=== PATIENT | female | born 1970 | race Caucasian/White ===

== ENCOUNTER 2016-08-23 12:26 | Emergency (ER) | payer OTHER, SELFPAY ==
[~2016-08-23] VITALS: Ht 170.2 cm; Wt 65.8 kg
[~2016-08-23 12:26] MED LIST: ABIL10TA; ALBUTEROL INHALATION; AMBI10TA; BACTRIMDS PO; BUSP15TA; CHLO200T; EFFE37.527; KLON2TAB; Lortab; PROZ40CA; RANI150C; RISP2TAB12; SOMA350 PO; TESSALO100 PO; TOPI100T; TOPI200T; TRAZ100T; ZYBAN150 PO
[2016-08-23 12:43] VITALS: BP 135/75
[2016-08-23] MEDS ORDERED: CLINDAMYCIN 600 MG/50 ML PREMIX BAG XX ONE (13:45)
[2016-08-23] MEDS ORDERED: BACTRIM 160MG/800MG DS TAB PO ONE (13:45)
[2016-08-23] MEDS ORDERED: ADACEL/BOOSTRIX VACCINE (DIPHTH/PERTUSS/ACELL/TETANUS)0.5ML SYR (90715) IM ONE (13:45)
[2016-08-23] MEDS ORDERED: CLIN1CAP5 PO (13:57)
[2016-08-23] MEDS ORDERED: BACT800T5 PO (13:58)
[2016-08-23] MEDS ORDERED: CLINDAMYCIN INJ 900MG/6ML VIAL IM ONE (14:00)
== END 2016-08-23 14:21 | disposition home or self-care (01) ==
LOC: EDBD 12:26 → M ED 13:56
DX: S61.259A Open bite of unspecified finger without damage to nail, initial encounter (principal); L03.011 Cellulitis of right finger; W54.0XXA Bitten by dog, initial encounter; Y92.099 Unspecified place in other non-institutional residence as the place of occurrence of the external cause; Y93.9 Activity, unspecified; Y99.9 Unspecified external cause status; F17.200 Nicotine dependence, unspecified, uncomplicated; Z79.899 Other long term (current) drug therapy; Z88.0 Allergy status to penicillin

== ENCOUNTER → 2016-09-03 | Outpatient (CLI) | payer OTHER ==
[~2016-09-03] MED LIST changes: +BACT800T5 PO; +CLIN1CAP5 PO
== END ==
LOC: M OUTALCOH 09:05
PROVIDERS: ATTEND Psychiatry & Neurology Psychiatry
DX: Z13.9 Encounter for screening, unspecified (principal); F10.20 Alcohol dependence, uncomplicated

== ENCOUNTER 2016-11-08 20:58 | Emergency (ER) | payer OTHER ==
[~2016-11-08] VITALS: Ht 170.2 cm; Wt 66.0 kg
[2016-11-08 21:05] VITALS: BP 134/70
[2016-11-09] MEDS ORDERED: CLEO300C2 PO (11:46)
== END 2016-11-08 21:43 | disposition left against medical advice (07) ==
LOC: EDBD 20:58 → M ED 21:23
DX: F10.10 Alcohol abuse, uncomplicated (principal); Z53.29 Procedure and treatment not carried out because of patient's decision for other reasons

== ENCOUNTER 2016-11-09 10:26 | Emergency (ER) | payer OTHER ==
[~2016-11-09] VITALS: Ht 170.2 cm; Wt 65.5 kg
[~2016-11-09 10:26] MED LIST changes: +CLIN150C14 PO; -CLIN1CAP5 PO
[2016-11-09] MEDS ORDERED: LIDOCAINE 1% MDV 20ML VIAL As Ordered ONE (11:14)
[2016-11-09] MEDS ORDERED: cefTRIAXone SOD 1 GM VIAL (J0696) IM ONE (11:15)
[2016-11-09] MEDS ORDERED: CLINDAMYCIN 150 MG CAP PO ONE (11:15)
[2016-11-09] MEDS ORDERED: CLEO300C2 PO (11:46)
[2016-11-09 11:48] VITALS: BP 134/86
== END 2016-11-09 12:01 | disposition home or self-care (01) ==
LOC: M ED 10:45
DX: S71.112A Laceration without foreign body, left thigh, initial encounter (principal); W54.0XXA Bitten by dog, initial encounter; Y92.099 Unspecified place in other non-institutional residence as the place of occurrence of the external cause; Y93.9 Activity, unspecified; Y99.9 Unspecified external cause status; R51 Headache; F31.9 Bipolar disorder, unspecified; F17.200 Nicotine dependence, unspecified, uncomplicated; Z88.0 Allergy status to penicillin

== ENCOUNTER 2016-11-11 12:04 | Emergency (ER) | payer OTHER ==
[~2016-11-11] VITALS: Ht 170.2 cm; Wt 65.7 kg
[2016-11-11 12:04] VITALS: BP 144/89
[~2016-11-11 12:04] MED LIST changes: +CLEO300C2 PO
[2016-11-11] MEDS ORDERED: cefTRIAXone SOD 1 GM VIAL (J0696) IM ONE (12:45)
[2016-11-11] MEDS ORDERED: CLINDAMYCIN 150 MG CAP PO ONE (12:45)
[2016-11-11] MEDS ORDERED: LIDOCAINE 1% MDV 20ML VIAL As Ordered ONE (12:50)
== END 2016-11-11 13:11 | disposition home or self-care (01) ==
LOC: M ED 13:01
DX: Z51.89 Encounter for other specified aftercare (principal); L03.116 Cellulitis of left lower limb; W54.0XXD Bitten by dog, subsequent encounter; Y92.099 Unspecified place in other non-institutional residence as the place of occurrence of the external cause; Y93.9 Activity, unspecified; Y99.9 Unspecified external cause status; G43.909 Migraine, unspecified, not intractable, without status migrainosus; F31.9 Bipolar disorder, unspecified; F10.20 Alcohol dependence, uncomplicated; F17.200 Nicotine dependence, unspecified, uncomplicated; Z88.0 Allergy status to penicillin

== ENCOUNTER 2016-11-17 18:19 | Emergency (ER) | payer OTHER ==
[~2016-11-17] VITALS: Ht 170.2 cm; Wt 67.5 kg
[2016-11-17 18:20] VITALS: BP 120/76
[2016-11-17] MEDS ORDERED: CLEO300C2 (19:30)
== END 2016-11-17 19:26 | disposition left against medical advice (07) ==
LOC: M ED 18:19
DX: R68.89 Other general symptoms and signs (principal); Z53.29 Procedure and treatment not carried out because of patient's decision for other reasons

== ENCOUNTER 2016-11-17 18:59 | Emergency (ER) | payer OTHER ==
[~2016-11-17] VITALS: Ht 170.2 cm; Wt 65.0 kg
[2016-11-17 19:00] VITALS: BP 115/82
[2016-11-17] MEDS ORDERED: CLEO300C2 (19:30)
== END 2016-11-17 20:00 | disposition left against medical advice (07) ==
LOC: M ED 18:59
DX: R68.89 Other general symptoms and signs (principal); Z53.29 Procedure and treatment not carried out because of patient's decision for other reasons

== ENCOUNTER → 2017-08-02 | Outpatient (CLI) | payer OTHER | LOC: M WUC 14:33 | DX: M54.2 Cervicalgia (principal) | CPT/HCPCS: 72040 ==

== ENCOUNTER 2017-08-21 20:02 | Emergency (ER) | payer MEDICAID, OTHER ==
[2017-08-21] MEDS: KETOROLAC 30 MG/ML VIAL (J1885) IM (21:15)
== END 2017-08-21 21:36 | disposition home or self-care (01) ==
LOC: M ED 20:02
DX: M25.511 Pain in right shoulder (principal); M25.512 Pain in left shoulder; G40.909 Epilepsy, unspecified, not intractable, without status epilepticus; F41.9 Anxiety disorder, unspecified; F33.9 Major depressive disorder, recurrent, unspecified; F10.10 Alcohol abuse, uncomplicated; F17.210 Nicotine dependence, cigarettes, uncomplicated
CPT/HCPCS: J1885

== ENCOUNTER → 2017-10-28 | Outpatient (REF) ==
[2017-10-28 18:24] LABS: ETHYL ALCOHOL (ETHANOL) 0.373 % (0.000-0.010)
== END ==
LOC: M LAB 11:41
DX: Z02.89 Encounter for other administrative examinations (principal)